=== PATIENT | male | born 1960 | race Caucasian/White ===

== ENCOUNTER 2024-12-24 10:41 | Emergency (ER) | payer OTHER, SELFPAY ==
[2024-12-24 10:55] VITALS: BP 108/72; PULSE 64; RESP 18; TEMP 36.4; O2SAT 98
[2024-12-24] MEDS: TETRACAINE HCL 0.5% OPHTH SOLN 4 ML BTL AFFCTD EYE (11:08)
[2024-12-24] MEDS: DACRIOSE EYE IRRIGATION 118 ML BOTTLE AFFCTD EYE (11:08)
[2024-12-24] MEDS: FLUORESCEIN SOD 1 MG/STRIP AFFCTD EYE (11:08)
--- NOTE | 2024-12-24 11:23 | ED.EYEPROB ---
HPI - Eye Problem General Chief complaint: Eye Problems Stated complaint: particles in eye Time Seen by Provider: 12/24/24 10:47 Source: patient Mode of arrival: ambulatory Limitations: no limitations History of Present Illness HPI Narrative: 64-year-old male presents to [facility] with complaints right eye irritation and watering for the past few hours. Patient reports he was helping a friend put up a deer stand and was using a saw, and he believes he got saw dust into his right eye. patient reports that he irrigated his eye but is concerned now about an abrasion. patient does not wear contacts and only uses reading glasses as needed. patient denies visual changes, purulent drainage, fever, body aches or chills chief complaint: eye pain Onset (ago): hour(s) (3) Eye Symptoms: redness and pain Place: street/outdoors Associated symptoms: none Treatments Prior to Arrival: irrigated eye Related Data Allergies Allergy/AdvReac Type Severity Reaction Status Date / Time No Known Allergies Allergy Verified 12/24/24 11:05 Review of Systems Constitutional: Constitutional: Reports chills, Reports fatigue, Reports fever(s) and Reports weakness Eyes: Eyes: Denies change in vision and Reports photophobia Comments: right eye irritation, redness and watering ENT: Denies vertigo, Denies dizziness, Denies nasal congestion and Denies sore throat Respiratory: Respiratory: Denies cough, Denies dyspnea and Denies wheezing Gastrointestinal: Gastrointestinal: Denies diarrhea, Denies nausea and Denies vomiting Integumentary/Breasts: Skin/Breast: Denies pruritus, Denies erythema and Denies rash Neurologic: Denies dizziness, Denies syncope and Denies headache(s) PMFSH Social History Social History Smoking status: Never smoker Second hand tobacco smoke exposure: No Alcohol intake: never Comments At time of signature, I agree with nursing past medical, surgical, social and family history. There is no relevant family history pertinent to the presenting complaint. Exam Const: General: healthy appearing and no acute distress Nutritional Appearance: well nourished Orientation/consciousness: patient oriented x3 Limitations: no limitations HENMT: Head: normal to inspection Eyes: Conjunctivae: conjunctival abnormality right ( Erythema noted to right conjunctiva with scant amount of clear watery drainage noted) Pupils: Equal, round and reactive pupils present Direct Ophthalmoscopy: photophobia Other: right eye was stained and there is a very small corneal abrasion noted to 12:00 p.m. region Neck: Neck: normal visual inspection Resp: Effort & Inspection: normal respiratory effort and not labored Auscultation: clear to auscultation bilaterally, no crackles, no rales, no rhonchi and no wheezes Cardio: Rate: regular rate Rhythm: regular rhythm Heart sounds: no murmurs Skin: General skin exam: normal color Rashes: no rashes Neuro: General: patient oriented x3 and moves all extremities Speech: normal speech Extrem: General: normal to inspection Psych: Affect: normal affect Attitude: cooperative Course Course Level of Care: Express Care Visit Vital Signs Vital signs: Vital Signs Temperature 36.4 C 12/24/24 10:55 Pulse Rate 64 12/24/24 10:55 Respiratory Rate 18 12/24/24 10:55 Blood Pressure 108/72 12/24/24 10:55 Pulse Oximetry 98 12/24/24 10:55 Oxygen Delivery Room Air 12/24/24 10:55 Temperature 36.4 C 12/24/24 10:55 Pulse Rate 64 12/24/24 10:55 Respiratory Rate 18 12/24/24 10:55 Blood Pressure 108/72 12/24/24 10:55 Pulse Oximetry 98 12/24/24 10:55 Oxygen Delivery Room Air 12/24/24 10:55 Procedures Other Procedure Procedure 1: Other Procedure: 2 drops of tetracaine inserted into right eye. Right eye was stained and there was a very small corneal abrasion noted at 12:00 o' o'clock region. right eye was then irrigated using eye wash. Patient tolerated well MDM - Eye Problem MDM Narrative Medical decision making narrative: instructed patient to follow-up with eye doctor to have symptoms re-evaluated. Patient agrees to use eyedrops as prescribed. encouraged patient to proceed to the emergency room if symptoms worsen Differential Diagnosis Differential diagnosis: Likely conjunctivitis and acute iritis Critical Care Time Critical Care Time Critical Care Time: No Discharge Plan Discharge Clinical Impression: Corneal abrasion Qualifiers: Encounter type: initial encounter Laterality: right Qualified Code(s): S05.01XA - Injury of conjunctiva and corneal abrasion without foreign body, right eye, initial encounter Patient Disposition: Home Condition: Stable Instructions: Corneal Abrasion (ED) Additional Instructions: Use eye drops as prescribed Follow-up with eye doctor to have symptoms re-evaluated Proceed to the emergency room symptoms worsen Patient Language: Turkish Prescriptions: New ofloxacin 0.3 % drops 1 drp RIGHT EYE QID 7 Days Qty: 5 0RF Follow-up/Referrals: PHYSICIAN,PIANO MECHANIC APPRENTICE [Primary Care Provider, Internal Medicine] Time of Disposition: 11:32
== END 2024-12-24 11:37 | disposition home or self-care (01) ==
PROVIDERS: Emergency Provider Nurse Practitioner Family; Referring Provider Emergency Medicine
DX: S05.01XA Injury of conjunctiva and corneal abrasion without foreign body, right eye, initial encounter (principal); X58.XXXA Exposure to other specified factors, initial encounter
CPT/HCPCS: 99203; A9270; G0463